=== PATIENT | male | born 1990 | race African-American/Black ===

== ENCOUNTER 2022-12-14 00:28 | Emergency (ER) | payer OTHER ==
[~2022-12-14] VITALS: Ht 170.2 cm; Wt 96.0 kg
[2022-12-14 00:36] VITALS: BP 131/77
[2022-12-14] MEDS ORDERED: IBUP-2029 MT (01:40)
[2022-12-14] MEDS ORDERED: SULF1TAB48 MT (01:40)
[2022-12-14] MEDS ORDERED: CEPH500C2 MT (01:40)
[2022-12-14] MEDS ORDERED: CEPHALEXIN 250MG CAPSULE PO ONE (01:45)
[2022-12-14] MEDS ORDERED: SULFAMETHOXAZOLE/TRIMETHOPRIM 800/160MG TABLET PO ONE (01:45)
[2022-12-14] MEDS ORDERED: IBUPROFEN 600MG TABLET PO ONE (01:45)
== END 2022-12-14 03:02 | disposition home or self-care (01) ==
LOC: ER 00:28
DX: L02.31 Cutaneous abscess of buttock (principal)
CPT/HCPCS: 99284; Z7610